=== PATIENT | female | born 2000 | race Caucasian/White ===

== ENCOUNTER 2018-10-25 19:33 | Emergency (ER) | payer MEDICAID ==
[~2018-10-25] VITALS: Ht 167.6 cm; Wt 78.3 kg
--- NOTE | 2018-10-25 20:15 | NUR ---
Plan of care discussed with patient and her parents, verbalize understanding.
[2018-10-25 20:24] LABS: BASOPHILS # (AUTO) 0.06 x10^3/uL (0-0.3); BASOPHILS % (AUTO) 1 % (0-1); EOSINOPHILS # (AUTO) 0.22 x10^3/uL (0-0.8); EOSINOPHILS % (AUTO) 2 % (1-7); LYMPHOCYTES # (AUTO) 2.33 x10^3/uL (1-6.1); LYMPHOCYTES % (AUTO) 19 % (22-44); MD NO; MEAN CORPUSCULAR HEMOGLOBIN 27.8 pg (27.0-34.8); MEAN CORPUSCULAR HGB CONC 33.7 g/dL (32.4-35.8); MEAN CORPUSCULAR VOLUME 82.5 fL (80-100); MEAN PLATELET VOLUME 7.9 fL (7.4-10.4); MONOCYTES # (AUTO) 0.75 x10^3/uL (0-1.4); MONOCYTES % (AUTO) 6 % (2-9); NEUTROPHILS # (AUTO) 8.75 x10^3/uL (1.8-8.0); NEUTROPHILS % (AUTO) 72 % (42-75); PLATELET COUNT 375 x10^3/uL (130-400); RED BLOOD COUNT 4.81 x10^6/uL (3.82-5.3); RED CELL DISTRIBUTION WIDTH 12.4 % (9.6-15.2)
[2018-10-25 20:33] LABS: ALBUMIN 4.4 g/dL (3.4-5.0); ANION GAP 5 mmol/L (5-15); CALCIUM 9.5 mg/dL (8.5-10.1); CHLORIDE 107 mmol/L (98-107); CREATININE 0.61 mg/dL (0.55-1.02)
[2018-10-25 20:45] LABS: MICROSCOPIC INDICATED
[2018-10-25 21:29] LABS: CULTURE INDICATED? NO
--- NOTE | 2018-10-25 21:37 | NUR ---
Report to SANCHEZ Loving
[2018-10-25 21:57] VITALS: BP 146/86
--- NOTE | 2018-10-25 21:57 | NUR ---
MD in for recheck, pt and family deny any further questions/concerns.
== END 2018-10-25 22:00 | disposition home or self-care (01) ==
LOC: ED 21:29
DX: R10.9 Unspecified abdominal pain (principal); R31.29 Other microscopic hematuria
CPT/HCPCS: 36415; 76770; 80048; 81001; 82040; 84703; 85025; 99284